=== PATIENT | female | born 1955 | race Caucasian/White ===

== ENCOUNTER 2020-08-10 17:18 | Inpatient (IN) | payer OTHER ==
[2020-08-10] MEDS ORDERED: LACTATED RINGERS SOLUTION 1000 ML INFUS.BAG IV ONE (18:17)
[2020-08-10] MEDS ORDERED: ACETAMINOPHEN 1000 MG/100 ML VIAL (NON FORMULARY) IVPB ONE (18:32)
[2020-08-10 18:33] LABS: BASO % 0.4 % (0-2.0); EOS % 0.1 % (0-4.5); HEMATOCRIT 39.4 % (32.4-45.2); HEMOGLOBIN 12.9 GM/dL (10.7-15.3); LYMPH % 6.1 % (8-40); MCH 28.1 pg (25.7-33.7); MCHC 32.6 g/dl (32.0-36.0); MEAN CELL VOLUME 86.1 fl (80-96); MEAN PLT VOLUME 6.6 fl (7.5-11.1); MONO % 4.1 % (3.8-10.2); NEUT % 89.3 % (42.8-82.8); PLATELET COUNT 343 K/MM3 (134-434); RBC 4.58 M/mm3 (3.60-5.2); WHITE BLOOD COUNT 15.3 K/mm3 (4.0-10.0)
[2020-08-10 18:39] LABS: INR 0.98 (0.83-1.09); PROTHROMBIN TIME (PATIENT) 11.9 SEC (9.7-13.0)
[2020-08-10 18:41] LABS: ACTIVATED PTT 29.8 SECONDS (25.2-36.5)
[2020-08-10 18:53] LABS: CHLORIDE 103 mmol/L (98-107); POTASSIUM 4.4 mmol/L (3.5-5.1); SODIUM 135 mmol/L (136-145)
[2020-08-10 18:55] LABS: ALBUMIN 4.7 g/dl (3.4-5.0)
[2020-08-10 18:56] LABS: ANION GAP 10 MMOL/L (8-16); BLOOD UREA NITROGEN 13.6 mg/dL (7-18); CO2 21 mmol/L (21-32); GLUCOSE,RANDOM 208 mg/dL (74-106); MAGNESIUM 2.7 mg/dL (1.8-2.4)
[2020-08-10 18:59] LABS: CREATININE 1.1 mg/dL (0.55-1.3); SGOT/AST 28 U/L (15-37); SGPT/ALT 29 U/L (13-61)
[2020-08-10 19:00] LABS: BILIRUBIN,TOTAL 0.2 mg/dL (0.2-1); TOT PROT 7.9 g/dl (6.4-8.2)
[2020-08-10 19:02] LABS: ALK PHOS 102 U/L (45-117)
[2020-08-10 19:33] VITALS: BMI 23.4
[2020-08-10] MEDS ORDERED: ACETAMINOPHEN 325 MG TABLET (FP) PO PRN (21:11)
[2020-08-10] MEDS ORDERED: SODIUM CHLORIDE 1,000 ML IV SCH (21:30)
[2020-08-10] MEDS: INSULIN SLIDING SCALE (NOVOLOG) 1 VIAL SQ SCH (23:06)
[2020-08-10 23:35] LABS: PH,URINE 5.5 (5.0-8.0); URINE APPEARANCE CLEAR; URINE BILIRUBIN NEGATIVE (NEGATIVE); URINE COLOR YELLOW; URINE GLUCOSE (UA) TRACE (NEGATIVE); URINE KETONE NEGATIVE (NEGATIVE); URINE LEUK ESTERASE NEGATIVE (NEGATIVE); URINE NITRITE NEGATIVE (NEGATIVE); URINE PROTEIN TRACE (NEGATIVE); URINE UROBILINOGEN 0.2 mg/dL (0.2-1.0)
[2020-08-11] MEDS: INSULIN SLIDING SCALE (NOVOLOG) 1 VIAL SQ SCH ×4 (06:56→21:19)
[2020-08-11 07:31] LABS: BASO % 0.6 % (0-2.0); EOS % 0.3 % (0-4.5); HEMATOCRIT 33.4 % (32.4-45.2); HEMOGLOBIN 11.1 GM/dL (10.7-15.3); LYMPH % 11.8 % (8-40); MCH 27.9 pg (25.7-33.7); MCHC 33.2 g/dl (32.0-36.0); MEAN CELL VOLUME 84.2 fl (80-96); MEAN PLT VOLUME 6.4 fl (7.5-11.1); MONO % 8.5 % (3.8-10.2); NEUT % 78.8 % (42.8-82.8); PLATELET COUNT 304 K/MM3 (134-434); RBC 3.97 M/mm3 (3.60-5.2); RDW 14.6 % (11.6-15.6); WHITE BLOOD COUNT 8.3 K/mm3 (4.0-10.0)
[2020-08-11 07:34] LABS: INR 1.05 (0.83-1.09); PROTHROMBIN TIME (PATIENT) 12.7 SEC (9.7-13.0)
[2020-08-11 07:36] LABS: ACTIVATED PTT 30.5 SECONDS (25.2-36.5)
[2020-08-11 07:37] LABS: POTASSIUM 4.6 mmol/L (3.5-5.1)
[2020-08-11 07:49] LABS: ALBUMIN 3.6 g/dl (3.4-5.0); BLOOD UREA NITROGEN 12.8 mg/dL (7-18)
[2020-08-11 07:51] LABS: CREATININE 0.7 mg/dL (0.55-1.3); PHOSPHOROUS 2.8 mg/dL (2.5-4.9)
[2020-08-11 07:52] LABS: BILIRUBIN,TOTAL 0.4 mg/dL (0.2-1); MAGNESIUM 2.5 mg/dL (1.8-2.4); TOT PROT 6.8 g/dl (6.4-8.2)
[2020-08-11] MEDS ORDERED: ONDANSETRON 4 MG/2 ML VIAL IVPUSH PRN (08:20)
[2020-08-11] MEDS ORDERED: PROPOFOL 20 ML ONE (09:28)
[2020-08-11] MEDS ORDERED: MIDAZOLAM HCL 2 MG/2 ML SINGLE DOSE VIAL ONE (09:29)
[2020-08-11] MEDS ORDERED: ACETAMINOPHEN 325 MG TABLET (FP) ONE (09:36)
[2020-08-11] MEDS ORDERED: ENOXAPARIN NA (PORCINE) 40 MG/0.4 ML DISP.SYRIN SQ ONE ×2 (09:40→11:12)
[2020-08-11] MEDS ORDERED: INSULIN (LEVEMIR) 100 UNITS/ML UNITS SQ ONE (09:41)
[2020-08-11] MEDS ORDERED: oxyCODONE HCL 5 MG TABLET PO PRN (09:42)
[2020-08-11] MEDS ORDERED: ACETAMINOPHEN 1000 MG/100 ML VIAL (NON FORMULARY) IVPB PRN (09:43)
[2020-08-11] MEDS ORDERED: MORPHINE SULFATE 2 MG/ML VIAL ONE (09:54)
[2020-08-11] MEDS: MORPHINE SULFATE 2 MG/ML VIAL IVPUSH PRN (10:02)
[2020-08-11] MEDS: LACTATED RINGERS SOLUTION 1,000 ML IV SCH (11:18)
[2020-08-12] MEDS: LACTATED RINGERS SOLUTION 1,000 ML IV SCH ×3 (02:20→23:55)
[2020-08-12] MEDS: INSULIN SLIDING SCALE (NOVOLOG) 1 VIAL SQ SCH ×3 (06:33→17:21)
[2020-08-12] MEDS: MORPHINE SULFATE 2 MG/ML VIAL IVPUSH PRN (08:08)
[2020-08-12] MEDS ORDERED: PERPHENAZINE 8 MG TABLET PO SCH (11:45)
[2020-08-12] MEDS ORDERED: MIDAZOLAM HCL 2 MG/2 ML SINGLE DOSE VIAL ONE ×2 (21:41)
[2020-08-12] MEDS ORDERED: GABAPENTIN 300 MG CAPSULE PO SCH (22:00)
[2020-08-12] MEDS ORDERED: TRIHEXYPHENIDYL HCL 5 MG TABLET PO SCH (22:00)
[2020-08-12] MEDS ORDERED: ceFAZolin SODIUM 1 GM VIAL ONE (22:06)
[2020-08-12] MEDS ORDERED: ceFAZolin SODIUM 1 GM VIAL IVPB ONE (22:10)
[2020-08-12] MEDS ORDERED: MORPHINE SULFATE 2 MG/ML VIAL IVPUSH PRN (23:26)
[2020-08-13] MEDS: INSULIN SLIDING SCALE (NOVOLOG) 1 VIAL SQ SCH ×5 (03:17→22:22)
[2020-08-13] MEDS: CEFAZOLIN 1 GM in DEXTROSE 5%-WATER - 1 GM/50 ML IVPB IVPB SCH ×3 (06:50→22:17)
[2020-08-13] MEDS ORDERED: DEXTROSE 5%-WATER - 50 ML IVPB ONE ×3 (06:53→21:56)
[2020-08-13] MEDS ORDERED: ceFAZolin SODIUM 1 GM VIAL ONE ×3 (06:53→21:56)
[2020-08-13] MEDS: oxyCODONE HCL 5 MG TABLET PO PRN ×2 (07:05→22:16)
[2020-08-13] MEDS: ACETAMINOPHEN 325 MG TABLET (FP) PO PRN (08:00)
[2020-08-13 08:31] LABS: BASO % 0.4 % (0-2.0); EOS % 0.5 % (0-4.5); HEMATOCRIT 30.7 % (32.4-45.2); HEMOGLOBIN 10.4 GM/dL (10.7-15.3); LYMPH % 8.1 % (8-40); MCH 28.7 pg (25.7-33.7); MCHC 34.1 g/dl (32.0-36.0); MEAN CELL VOLUME 84.2 fl (80-96); MEAN PLT VOLUME 6.7 fl (7.5-11.1); MONO % 7.2 % (3.8-10.2); NEUT % 83.8 % (42.8-82.8); PLATELET COUNT 280 K/MM3 (134-434); RBC 3.64 M/mm3 (3.60-5.2); WHITE BLOOD COUNT 8.3 K/mm3 (4.0-10.0)
[2020-08-13 08:51] LABS: POTASSIUM 3.8 mmol/L (3.5-5.1)
[2020-08-13 08:58] LABS: ALBUMIN 3.6 g/dl (3.4-5.0); CALCIUM 8.5 mg/dL (8.5-10.1)
[2020-08-13 09:01] LABS: BILIRUBIN,TOTAL 0.7 mg/dL (0.2-1); TOT PROT 6.7 g/dl (6.4-8.2)
[2020-08-13 09:02] LABS: CREATININE 0.5 mg/dL (0.55-1.3); PHOSPHOROUS 2.9 mg/dL (2.5-4.9)
[2020-08-13] MEDS ORDERED: PT OWN MED DRAWER 7, Y5N ONE (09:11)
[2020-08-13] MEDS: PARoxetine HCL 20 MG TABLET PO SCH (09:34)
[2020-08-13] MEDS: CALCIUM 500MG/VIT-D 200 UNITS COMBO TABLET (FP) PO SCH ×2 (09:34→22:17)
[2020-08-13] MEDS: GABAPENTIN 300 MG CAPSULE PO SCH ×2 (09:34→22:17)
[2020-08-13] MEDS: TRIHEXYPHENIDYL HCL 5 MG TABLET PO SCH ×2 (09:35→22:17)
[2020-08-13] MEDS: LISINOPRIL 10 MG TABLET PO SCH (09:35)
[2020-08-13] MEDS: ENOXAPARIN NA (PORCINE) 40 MG/0.4 ML DISP.SYRIN SQ SCH (09:35)
[2020-08-13] MEDS ORDERED: PARoxetine HCL 20 MG TABLET PO SCH (10:00)
[2020-08-13] MEDS ORDERED: PERPHENAZINE 8 MG TABLET PO SCH (10:00)
[2020-08-13] MEDS ORDERED: LISINOPRIL 5 MG TABLET PO SCH ×2 (10:00)
[2020-08-13] MEDS: PERPHENAZINE 4 MG TABLET PO SCH ×2 (10:57→22:16)
[2020-08-14] MEDS: LACTATED RINGERS SOLUTION 1,000 ML IV SCH (00:23)
[2020-08-14] MEDS: oxyCODONE HCL 5 MG TABLET PO PRN ×3 (06:22→21:43)
[2020-08-14] MEDS: INSULIN SLIDING SCALE (NOVOLOG) 1 VIAL SQ SCH ×4 (06:22→21:55)
[2020-08-14 08:26] LABS: BASO % 0.8 % (0-2.0); EOS % 3.2 % (0-4.5); HEMATOCRIT 27.6 % (32.4-45.2); HEMOGLOBIN 9.4 GM/dL (10.7-15.3); LYMPH % 27.4 % (8-40); MCH 28.4 pg (25.7-33.7); MCHC 34.2 g/dl (32.0-36.0); MEAN CELL VOLUME 83.1 fl (80-96); MEAN PLT VOLUME 6.7 fl (7.5-11.1); MONO % 10.3 % (3.8-10.2); NEUT % 58.3 % (42.8-82.8); PLATELET COUNT 286 K/MM3 (134-434); RBC 3.33 M/mm3 (3.60-5.2); RDW 13.8 % (11.6-15.6)
[2020-08-14 08:44] LABS: POTASSIUM 3.9 mmol/L (3.5-5.1)
[2020-08-14 08:53] LABS: ALBUMIN 2.9 g/dl (3.4-5.0); BLOOD UREA NITROGEN 6.6 mg/dL (7-18); CALCIUM 8.4 mg/dL (8.5-10.1)
[2020-08-14] MEDS ORDERED: PT OWN MED DRAWER 7, Y5N ONE (08:53)
[2020-08-14 08:54] LABS: MAGNESIUM 1.9 mg/dL (1.8-2.4)
[2020-08-14 08:56] LABS: CREATININE 0.4 mg/dL (0.55-1.3)
[2020-08-14 08:57] LABS: BILIRUBIN,TOTAL 0.6 mg/dL (0.2-1); PHOSPHOROUS 3.1 mg/dL (2.5-4.9)
[2020-08-14 08:58] LABS: TOT PROT 6.2 g/dl (6.4-8.2)
[2020-08-14] MEDS: TRIHEXYPHENIDYL HCL 5 MG TABLET PO SCH ×2 (09:20→21:56)
[2020-08-14] MEDS: ENOXAPARIN NA (PORCINE) 40 MG/0.4 ML DISP.SYRIN SQ SCH (09:21)
[2020-08-14] MEDS: GABAPENTIN 300 MG CAPSULE PO SCH ×2 (09:22→21:42)
[2020-08-14] MEDS: PARoxetine HCL 20 MG TABLET PO SCH (09:23)
[2020-08-14] MEDS: CALCIUM 500MG/VIT-D 200 UNITS COMBO TABLET (FP) PO SCH ×2 (09:23→21:42)
[2020-08-14] MEDS: LISINOPRIL 10 MG TABLET PO SCH (09:24)
[2020-08-14] MEDS: PERPHENAZINE 4 MG TABLET PO SCH ×2 (09:24→21:42)
[2020-08-14] MEDS: ACETAMINOPHEN 325 MG TABLET (FP) PO PRN (11:32)
[2020-08-15] MEDS: INSULIN SLIDING SCALE (NOVOLOG) 1 VIAL SQ SCH ×2 (06:27→11:44)
[2020-08-15] MEDS ORDERED: PT OWN MED DRAWER 7, Y5N ONE (09:11)
[2020-08-15] MEDS: GABAPENTIN 300 MG CAPSULE PO SCH (09:26)
[2020-08-15] MEDS: PARoxetine HCL 20 MG TABLET PO SCH (09:26)
[2020-08-15] MEDS: TRIHEXYPHENIDYL HCL 5 MG TABLET PO SCH (09:26)
[2020-08-15] MEDS: CALCIUM 500MG/VIT-D 200 UNITS COMBO TABLET (FP) PO SCH (09:26)
[2020-08-15] MEDS: ENOXAPARIN NA (PORCINE) 40 MG/0.4 ML DISP.SYRIN SQ SCH (09:26)
[2020-08-15] MEDS: LISINOPRIL 10 MG TABLET PO SCH (09:26)
[2020-08-15] MEDS: PERPHENAZINE 4 MG TABLET PO SCH (09:27)
[2020-08-15 10:21] VITALS: BP 105/69; PULSE 115; TEMP 97.9
[2020-08-15] MEDS ORDERED: INSULIN (NOVOLOG) ASPART 100 UNITS/ML 10ML VIAL ONE (11:31)
[2020-08-15] MEDS ORDERED: TAMSULOSIN HCL 0.4 MG CAP PO ONE (13:47)
== END 2020-08-15 14:19 | DRG 482 ==
LOC: JER 17:18 → JERBED 20:46 → J4W 08-11 20:46
PROVIDERS: ADMIT Hospitalist; ATTEND Internal Medicine
PROC: 0QS706Z Reposition Left Upper Femur with Intramedullary Internal Fixation Device, Open Approach (ICD-10-PCS; principal; 2020-08-12 18:00)
DX: S72.142A Displaced intertrochanteric fracture of left femur, initial encounter for closed fracture (principal); R55 Syncope and collapse; I95.9 Hypotension, unspecified; E86.0 Dehydration; R33.9 Retention of urine, unspecified; R19.7 Diarrhea, unspecified; E11.65 Type 2 diabetes mellitus with hyperglycemia; F32.9 Major depressive disorder, single episode, unspecified; I10 Essential (primary) hypertension; W19.XXXA Unspecified fall, initial encounter; Y93.9 Activity, unspecified; Y92.89 Other specified places as the place of occurrence of the external cause; Y99.9 Unspecified external cause status
CPT/HCPCS: 36415; 70450-TC; 71045-TC-FY; 72125-TC; 73523-TC-FY; 73552-TC-LT-FY; 74174-TC; 80053; 81003; 82962; 83036; 83735; 84100; 84443; 84484; 85025; 85610; 85730; 86850; 86900; 86901; 87045; 87046; 87086; 87205; 87324; 87449; 93005; 93010; 93306-TC; 94010; 94760; 97116-GP; 97161-GP; 99285-25; C9803; J0131; Q9967; U0003

== ENCOUNTER 2021-04-25 11:41 | Inpatient (IN) | payer OTHER ==
[2021-04-25 13:10] LABS: EPI CELLS 1 /uL (0-25.1); HYALINE CASTS 0 /uL (0-3.1); PH,URINE 5.5 (5.0-8.0); URINE APPEARANCE CLOUDY; URINE BACTERIA 6254 /uL (0-1359); URINE BILIRUBIN NEGATIVE (NEGATIVE); URINE COLOR YELLOW; URINE GLUCOSE (UA) TRACE (NEGATIVE); URINE KETONE NEGATIVE (NEGATIVE); URINE LEUK ESTERASE 3+ (NEGATIVE); URINE NITRITE POSITIVE (NEGATIVE); URINE PROTEIN TRACE (NEGATIVE); URINE RBC 13 /uL (0-23.9); URINE UROBILINOGEN 0.2 mg/dL (0.2-1.0); URINE WBC 973 /uL (0-25.8)
[2021-04-25] MEDS ORDERED: PIPERACILLIN/TAZOB 4.5 GM 4.5 GM in DEXTROSE 5%-WATER 100 ML IVPB ONE (13:12)
[2021-04-25] MEDS ORDERED: PIPERACILLIN/TAZOB 4.5 GM 4.5 GM/100 ML BAG IVPB ONE (13:17)
[2021-04-25] MEDS: SODIUM CHLORIDE 1,000 ML IV SCH (13:24)
[2021-04-25 13:34] LABS: BASO % 0.3 % (0-2.0); EOS % 1.9 % (0-4.5); HEMATOCRIT 38.6 % (32.4-45.2); HEMOGLOBIN 12.6 GM/dL (10.7-15.3); LYMPH % 9.7 % (8-40); MCH 27.3 pg (25.7-33.7); MCHC 32.7 g/dl (32.0-36.0); MEAN CELL VOLUME 83.5 fl (80-96); MEAN PLT VOLUME 6.7 fl (7.5-11.1); MONO % 3.6 % (3.8-10.2); NEUT % 84.5 % (42.8-82.8); PLATELET COUNT 411 10^3/uL (134-434); RBC 4.63 M/mm3 (3.60-5.2); WHITE BLOOD COUNT 12.8 K/mm3 (4.0-10.0)
[2021-04-25 13:39] LABS: INR 0.85 (0.83-1.09); PROTHROMBIN TIME (PATIENT) 10.5 SEC (9.7-13.0)
[2021-04-25 13:42] LABS: ACTIVATED PTT 37.1 SECONDS (25.2-36.5)
[2021-04-25 13:46] LABS: CHLORIDE 101 mmol/L (98-107); SODIUM 136 mmol/L (136-145)
[2021-04-25 13:50] LABS: CHOLESTEROL 193 mg/dL (50-200)
[2021-04-25 13:51] LABS: CALCIUM 9.8 mg/dL (8.5-10.1); TRIGLYCERIDES 100 mg/dL (0-150)
[2021-04-25 13:52] LABS: ALBUMIN 4.3 g/dl (3.4-5.0); ANION GAP 13 MMOL/L (8-16); BLOOD UREA NITROGEN 49.4 mg/dL (7-18); CO2 22 mmol/L (21-32); GLUCOSE,RANDOM 299 mg/dL (74-106); LDL CHOLESTEROL (ONLY SJRH) 110 mg/dL (5-100)
[2021-04-25 13:53] LABS: HDL CHOLESTEROL 53 mg/dL (40-60)
[2021-04-25 13:54] LABS: SGPT/ALT 28 U/L (13-61)
[2021-04-25 13:55] LABS: CREATININE 2.3 mg/dL (0.55-1.3); SGOT/AST 16 U/L (15-37)
[2021-04-25 13:56] LABS: BILIRUBIN,TOTAL 0.4 mg/dL (0.2-1); TOT PROT 8.8 g/dl (6.4-8.2)
[2021-04-25 13:57] LABS: ALK PHOS 158 U/L (45-117)
[2021-04-25] MEDS ORDERED: LACTATED RINGERS SOLUTION 1000 ML INFUS.BAG IV ONE (14:37)
[2021-04-25 23:20] VITALS: BMI 19.9
[2021-04-26] MEDS: SODIUM CHLORIDE 1,000 ML IV SCH (00:02)
[2021-04-26] MEDS ORDERED: INSULIN SLIDING SCALE (NOVOLOG) 1 VIAL SQ SCH (11:00)
[2021-04-26] MEDS: INSULIN SLIDING SCALE (NOVOLOG) 1 VIAL SQ SCH ×2 (11:06→16:55)
[2021-04-26] MEDS: LISINOPRIL 10 MG TABLET PO SCH (12:55)
[2021-04-26] MEDS: LORazepam 1 MG TABLET PO PRN (14:45)
[2021-04-26] MEDS ORDERED: CEFTRIAXONE 1 GM in DEXTROSE 5%-WATER - 50 ML IVPB SCH (17:15)
[2021-04-26] MEDS ORDERED: cefTRIAXone SODIUM 1 GM VIAL ONE (17:53)
[2021-04-26] MEDS ORDERED: DEXTROSE 5%-WATER - 50 ML IVPB ONE (17:54)
[2021-04-26] MEDS ORDERED: INSULIN (LEVEMIR) 100 UNITS/ML UNITS SQ SCH (22:00)
[2021-04-27] MEDS ORDERED: DEXTROSE 50%-WATER 25 GM/50 ML DISP.SYRIN ONE (06:09)
[2021-04-27] MEDS ORDERED: PIPERACILLIN/TAZOB 4.5 GM 4.5 GM in DEXTROSE 5%-WATER 100 ML IVPB ONE (06:17)
[2021-04-27] MEDS ORDERED: VANCOMYCIN 1 GM in D5W (PRE-DOCKED) 1,000 MG/250 ML IVPB ONE (06:18)
[2021-04-27] MEDS ORDERED: DEXTROSE 50%-WATER - 25 GM/50 ML VIAL IVPUSH ONE (06:19)
[2021-04-27 06:29] LABS: ARTERIAL BLD GAS O2 SATURATION 99.3 % (95-98); ARTERIAL BLOOD GAS BASE EXCESS -1.8 mmol/L (-2-2); ARTERIAL BLOOD GAS PO2 197.8 mmHg (80-100); ARTERIAL BLOOD GAS pH 7.393 (7.350-7.450)
[2021-04-27 06:30] LABS: ALLENS TEST POSITIVE
[2021-04-27] MEDS ORDERED: VANCOMYCIN 1 GRAM (PRE-DOCKED) 1,000 MG/250 ML BAG IVPB ONE (06:30)
[2021-04-27] MEDS ORDERED: PIPERACILLIN/TAZOBACTAM 4.5 GM VIAL IVPB ONE (06:48)
[2021-04-27] MEDS ORDERED: DEXTROSE 5%-WATER 100 ML IVPB ONE (06:48)
[2021-04-27 07:49] LABS: BASO % 0.8 % (0-2.0); EOS % 3.3 % (0-4.5); HEMATOCRIT 33.9 % (32.4-45.2); HEMOGLOBIN 11.5 GM/dL (10.7-15.3); LYMPH % 17.4 % (8-40); MCH 28.1 pg (25.7-33.7); MCHC 33.9 g/dl (32.0-36.0); MEAN CELL VOLUME 83.1 fl (80-96); MEAN PLT VOLUME 6.8 fl (7.5-11.1); MONO % 7.4 % (3.8-10.2); NEUT % 71.1 % (42.8-82.8); PLATELET COUNT 353 10^3/uL (134-434); RBC 4.08 M/mm3 (3.60-5.2); RDW 15.7 % (11.6-15.6); WHITE BLOOD COUNT 7.5 K/mm3 (4.0-10.0)
[2021-04-27] MEDS: INSULIN SLIDING SCALE (NOVOLOG) 1 VIAL SQ SCH ×3 (07:53→17:19)
[2021-04-27 08:07] LABS: CHLORIDE 106 mmol/L (98-107); SODIUM 138 mmol/L (136-145)
[2021-04-27 08:09] LABS: ALBUMIN 3.7 g/dl (3.4-5.0); ANION GAP 9 MMOL/L (8-16); CALCIUM 8.9 mg/dL (8.5-10.1); CO2 24 mmol/L (21-32)
[2021-04-27 08:10] LABS: BLOOD UREA NITROGEN 38.5 mg/dL (7-18); BLOOD UREA NITROGEN 38.6 mg/dL (7-18); CALCIUM 9.1 mg/dL (8.5-10.1); GLUCOSE,RANDOM 218 mg/dL (74-106)
[2021-04-27 08:12] LABS: SGPT/ALT 20 U/L (13-61)
[2021-04-27 08:13] LABS: CREATININE 2.1 mg/dL (0.55-1.3); SGOT/AST 12 U/L (15-37)
[2021-04-27 08:14] LABS: BILIRUBIN,TOTAL 0.3 mg/dL (0.2-1); CREATININE 2.1 mg/dL (0.55-1.3); TOT PROT 7.4 g/dl (6.4-8.2)
[2021-04-27 08:20] LABS: ALK PHOS 125 U/L (45-117)
[2021-04-27] MEDS ORDERED: levETIRAcetam 500 MG/5 ML INJECTION VIAL IVPB SCH ×2 (08:30→22:00)
[2021-04-27] MEDS ORDERED: levETIRAcetam 500 MG/5 ML INJECTION VIAL IVPB ONE (08:30)
[2021-04-27] MEDS ORDERED: LORazepam 2 MG/ML SDV VIAL IVPUSH ONE (08:30)
[2021-04-27] MEDS ORDERED: INSULIN (LEVEMIR) 100 UNITS/ML UNITS SQ SCH (10:20)
[2021-04-27] MEDS: LISINOPRIL 10 MG TABLET PO SCH (11:00)
[2021-04-27] MEDS: LORazepam 1 MG TABLET PO PRN (11:01)
[2021-04-27] MEDS ORDERED: diphenhydrAMINE HCL 25 MG CAPSULE (FP) PO ONE (13:00)
[2021-04-27] MEDS ORDERED: cefTRIAXone SODIUM 1 GM VIAL ONE (13:55)
[2021-04-27] MEDS ORDERED: DEXTROSE 5%-WATER - 50 ML IVPB ONE (13:56)
[2021-04-27] MEDS: CEFTRIAXONE 1 GM in DEXTROSE 5%-WATER - 50 ML IVPB SCH (14:00)
[2021-04-27] MEDS: levETIRAcetam 500 MG TABLET (FP) PO SCH (22:43)
[2021-04-27] MEDS ORDERED: INSULIN (LEVEMIR) 100 UNITS/ML UNITS SQ ONE (23:30)
[2021-04-27] MEDS: INSULIN (LEVEMIR) 100 UNITS/ML UNITS SQ SCH (23:37)
[2021-04-28] MEDS ORDERED: PT OWN MED DRAWER 7, Y5N ONE (02:56)
[2021-04-28] MEDS ORDERED: INSULIN (LEVEMIR) 100 UNITS/ML UNITS SQ ONE (02:56)
[2021-04-28] MEDS: LEVOTHYROXINE NA 75 MCG TABLET (FP) PO SCH (06:28)
[2021-04-28] MEDS: INSULIN SLIDING SCALE (NOVOLOG) 1 VIAL SQ SCH ×3 (06:29→16:36)
[2021-04-28 07:56] LABS: BASO % 1.3 % (0-2.0); EOS % 4.2 % (0-4.5); HEMATOCRIT 32.4 % (32.4-45.2); HEMOGLOBIN 10.9 GM/dL (10.7-15.3); LYMPH % 16.6 % (8-40); MCH 27.6 pg (25.7-33.7); MCHC 33.6 g/dl (32.0-36.0); MEAN CELL VOLUME 82.1 fl (80-96); MEAN PLT VOLUME 6.9 fl (7.5-11.1); MONO % 8.6 % (3.8-10.2); NEUT % 69.3 % (42.8-82.8); PLATELET COUNT 311 10^3/uL (134-434); RBC 3.94 M/mm3 (3.60-5.2); RDW 15.7 % (11.6-15.6); WHITE BLOOD COUNT 8.4 K/mm3 (4.0-10.0)
[2021-04-28 08:14] LABS: BLOOD UREA NITROGEN 40.4 mg/dL (7-18)
[2021-04-28 08:18] LABS: CREATININE 2.5 mg/dL (0.55-1.3)
[2021-04-28 09:16] LABS: PLATELET ESTIMATE NORMAL
[2021-04-28] MEDS ORDERED: cefTRIAXone SODIUM 1 GM VIAL ONE (09:33)
[2021-04-28] MEDS ORDERED: DEXTROSE 5%-WATER - 50 ML IVPB ONE (09:34)
[2021-04-28] MEDS: levETIRAcetam 500 MG TABLET (FP) PO SCH ×2 (09:48→21:57)
[2021-04-28] MEDS: LISINOPRIL 10 MG TABLET PO SCH (09:48)
[2021-04-28] MEDS: CEFTRIAXONE 1 GM in DEXTROSE 5%-WATER - 50 ML IVPB SCH (09:49)
[2021-04-28] MEDS ORDERED: SODIUM CHLORIDE 0.45% 1,000 ML IV SCH (15:00)
[2021-04-28] MEDS: INSULIN (LEVEMIR) 100 UNITS/ML UNITS SQ SCH (21:57)
[2021-04-29] MEDS: LORazepam 1 MG TABLET PO PRN ×3 (00:52→21:29)
[2021-04-29] MEDS: INSULIN SLIDING SCALE (NOVOLOG) 1 VIAL SQ SCH ×3 (06:26→16:43)
[2021-04-29] MEDS: LEVOTHYROXINE NA 75 MCG TABLET (FP) PO SCH (06:39)
[2021-04-29] MEDS ORDERED: cefTRIAXone SODIUM 1 GM VIAL ONE (08:44)
[2021-04-29] MEDS ORDERED: DEXTROSE 5%-WATER - 50 ML IVPB ONE (08:44)
[2021-04-29] MEDS: levETIRAcetam 500 MG TABLET (FP) PO SCH ×2 (09:03→21:28)
[2021-04-29] MEDS: CEFTRIAXONE 1 GM in DEXTROSE 5%-WATER - 50 ML IVPB SCH (09:03)
[2021-04-29 11:50] LABS: CALCIUM 9.4 mg/dL (8.5-10.1)
[2021-04-29 11:51] LABS: BLOOD UREA NITROGEN 34.1 mg/dL (7-18)
[2021-04-29 11:54] LABS: CREATININE 1.9 mg/dL (0.55-1.3)
[2021-04-29] MEDS ORDERED: LORazepam 2 MG/ML SDV VIAL IM ONE (13:15)
[2021-04-29] MEDS ORDERED: SODIUM CHLORIDE 0.45% 1,000 ML IV SCH (15:15)
[2021-04-29 18:10] LABS: EPI CELLS 2 /uL (0-25.1); HYALINE CASTS 0 /uL (0-3.1); PH,URINE 5.5 (5.0-8.0); URINE APPEARANCE CLOUDY; URINE BACTERIA 71 /uL (0-1359); URINE BILIRUBIN NEGATIVE (NEGATIVE); URINE COLOR YELLOW; URINE GLUCOSE (UA) NEGATIVE (NEGATIVE); URINE KETONE NEGATIVE (NEGATIVE); URINE LEUK ESTERASE 3+ (NEGATIVE); URINE NITRITE NEGATIVE (NEGATIVE); URINE PROTEIN TRACE (NEGATIVE); URINE RBC 12 /uL (0-23.9); URINE UROBILINOGEN 0.2 mg/dL (0.2-1.0); URINE WBC 1145 /uL (0-25.8)
[2021-04-29] MEDS: INSULIN (LEVEMIR) 100 UNITS/ML UNITS SQ SCH (21:29)
[2021-04-30] MEDS: LEVOTHYROXINE NA 75 MCG TABLET (FP) PO SCH (06:01)
[2021-04-30] MEDS: INSULIN SLIDING SCALE (NOVOLOG) 1 VIAL SQ SCH ×3 (06:01→17:12)
[2021-04-30 08:33] LABS: ALBUMIN 3.5 g/dl (3.4-5.0); BLOOD UREA NITROGEN 37.4 mg/dL (7-18)
[2021-04-30 08:37] LABS: BILIRUBIN,TOTAL 0.2 mg/dL (0.2-1); TOT PROT 7.1 g/dl (6.4-8.2)
[2021-04-30] MEDS: levETIRAcetam 500 MG TABLET (FP) PO SCH ×2 (10:33→20:59)
[2021-04-30] MEDS ORDERED: LORazepam 1 MG TABLET PO ONE (19:17)
[2021-04-30] MEDS ORDERED: INSULIN (NOVOLOG) ASPART 100 UNITS/ML 10ML VIAL ONE (20:20)
[2021-04-30] MEDS: INSULIN (LEVEMIR) 100 UNITS/ML UNITS SQ SCH (20:59)
[2021-04-30] MEDS ORDERED: OLANZapine 5 MG TABLET PO SCH (22:00)
[2021-04-30 23:33] VITALS: BP 161/83; PULSE 92; TEMP 97.4
[2021-05-01] MEDS: LEVOTHYROXINE NA 75 MCG TABLET (FP) PO SCH (06:13)
[2021-05-01] MEDS: INSULIN SLIDING SCALE (NOVOLOG) 1 VIAL SQ SCH (06:13)
== END 2021-05-01 07:35 | DRG 689 ==
LOC: JER 11:41 → JERBED 14:13 → J7W 22:01
PROVIDERS: ADMIT Family Medicine; ATTEND Family Medicine
DX: N39.0 Urinary tract infection, site not specified (principal); G92 Toxic encephalopathy; N17.9 Acute kidney failure, unspecified; F03.91 Unspecified dementia, unspecified severity, with behavioral disturbance; R41.82 Altered mental status, unspecified; I10 Essential (primary) hypertension; R56.9 Unspecified convulsions; E11.649 Type 2 diabetes mellitus with hypoglycemia without coma; K21.9 Gastro-esophageal reflux disease without esophagitis
CPT/HCPCS: 36415; 36600; 70450-TC; 71045-TC-FY; 76775-TC; 76856-TC; 80048; 80053; 80061; 81003; 82010; 82140; 82436; 82550; 82570; 82607; 82747; 82803; 82962; 83605; 84133; 84300; 84443; 84484; 85014; 85025; 85610; 85730; 86780; 86850; 86900; 86901; 87040; 87077; 87086; 87804; 93005; 93010; 97116-GP; 97161-GP; 99285-25; C9803; U0003; U0005

== ENCOUNTER 2021-11-07 11:58 | Inpatient (IN) | payer OTHER ==
[2021-11-07 12:25] VITALS: BMI 18.5
[2021-11-07 13:23] LABS: BASO % 0.4 % (0-2.0); EOS % 1.8 % (0-4.5); HEMATOCRIT 22.2 % (32.4-45.2); HEMOGLOBIN 7.8 GM/dL (10.7-15.3); LYMPH % 5.6 % (8-40); MCH 28.3 pg (25.7-33.7); MEAN CELL VOLUME 80.8 fl (80-96); MEAN PLT VOLUME 6.1 fl (7.5-11.1); MONO % 6.7 % (3.8-10.2); NEUT % 85.5 % (42.8-82.8); PLATELET COUNT 390 10^3/uL (134-434); RBC 2.74 M/mm3 (3.60-5.2); RDW 13.6 % (11.6-15.6); WHITE BLOOD COUNT 11.8 K/mm3 (4.0-10.0)
[2021-11-07 13:29] LABS: INR 1.03 (0.83-1.09); PROTHROMBIN TIME (PATIENT) 11.9 SEC (9.7-13.0)
[2021-11-07 13:31] LABS: ACTIVATED PTT 33.6 SECONDS (25.2-36.5)
[2021-11-07 13:32] LABS: PH,URINE 6.5 (5.0-8.0); URINE APPEARANCE CLOUDY; URINE BILIRUBIN NEGATIVE (NEGATIVE); URINE COLOR YELLOW; URINE GLUCOSE (UA) NEGATIVE (NEGATIVE); URINE KETONE NEGATIVE (NEGATIVE); URINE LEUK ESTERASE 3+ (NEGATIVE); URINE NITRITE POSITIVE (NEGATIVE); URINE PROTEIN TRACE (NEGATIVE); URINE UROBILINOGEN 0.2 mg/dL (0.2-1.0)
[2021-11-07 13:40] LABS: EPI CELLS 5.7 /uL (0-25.1); URINE BACTERIA 2459.1 /uL (0-1359); URINE RBC 22.9 /uL (0-23.9); URINE WBC 1611.9 /uL (0-25.8)
[2021-11-07 13:46] LABS: CALCIUM 8.7 mg/dL (8.5-10.1)
[2021-11-07 13:48] LABS: ALBUMIN 3.8 g/dl (3.4-5.0); MAGNESIUM 2.2 mg/dL (1.8-2.4)
[2021-11-07] MEDS ORDERED: SODIUM CHLORIDE 0.9% 500 ML INFUS.BAG IV ONE (13:48)
[2021-11-07 13:51] LABS: CREATININE 2.7 mg/dL (0.55-1.3); PHOSPHOROUS 4.8 mg/dL (2.5-4.9)
[2021-11-07] MEDS ORDERED: CEFTRIAXONE 1 GM in DEXTROSE 5%-WATER - 100 ML IVPB ONE (13:52)
[2021-11-07 13:53] LABS: BILIRUBIN,TOTAL 0.2 mg/dL (0.2-1); TOT PROT 7.1 g/dl (6.4-8.2)
[2021-11-07] MEDS ORDERED: CEFTRIAXONE 1 GM/50 ML BAG ONE (13:53)
[2021-11-07 14:18] LABS: BLOOD UREA NITROGEN 60.5 mg/dL (7-18)
[2021-11-07] MEDS: ACETAMINOPHEN 325 MG TABLET (FP) PO PRN (17:36)
[2021-11-07] MEDS ORDERED: SODIUM CHLORIDE 1,000 ML IV SCH (18:08)
[2021-11-07] MEDS: SODIUM CHLORIDE 1,000 ML IV SCH ×2 (18:10→18:49)
[2021-11-07] MEDS: SODIUM ZIRCONIUM CYCLOSILICATE (LOKELMA) 10 GM PACKET PO SCH (19:29)
[2021-11-07 19:53] LABS: MCH 27.9 pg (25.7-33.7); MCHC 34.6 g/dl (32.0-36.0); MEAN CELL VOLUME 80.7 fl (80-96); MEAN PLT VOLUME 6.2 fl (7.5-11.1); PLATELET COUNT 400 10^3/uL (134-434); RBC 2.48 M/mm3 (3.60-5.2); RDW 13.5 % (11.6-15.6); WHITE BLOOD COUNT 11.2 K/mm3 (4.0-10.0)
[2021-11-07 20:05] LABS: HEMOGLOBIN 6.9 GM/dL (10.7-15.3)
[2021-11-07 20:22] LABS: CALCIUM 8.2 mg/dL (8.5-10.1)
[2021-11-07 20:23] LABS: BLOOD UREA NITROGEN 58.2 mg/dL (7-18)
[2021-11-07 20:27] LABS: CREATININE 2.8 mg/dL (0.55-1.3)
[2021-11-07] MEDS: OLANZapine 5 MG TABLET PO SCH (22:42)
[2021-11-07] MEDS: HEPARIN NA (PORCINE) 5,000 UNITS/ML 1ML VIAL SQ SCH (22:42)
[2021-11-07] MEDS: levETIRAcetam 500 MG TABLET (FP) PO SCH (22:42)
[2021-11-08] MEDS: ACETAMINOPHEN 325 MG TABLET (FP) PO PRN ×2 (02:29→16:43)
[2021-11-08] MEDS: LEVOTHYROXINE NA 75 MCG TABLET (FP) PO SCH (06:32)
[2021-11-08 08:52] LABS: BASO % 0.5 % (0-2.0); EOS % 1.7 % (0-4.5); HEMATOCRIT 30.2 % (32.4-45.2); HEMOGLOBIN 10.1 GM/dL (10.7-15.3); LYMPH % 7.2 % (8-40); MCH 27.4 pg (25.7-33.7); MCHC 33.6 g/dl (32.0-36.0); MEAN CELL VOLUME 81.6 fl (80-96); MEAN PLT VOLUME 6.1 fl (7.5-11.1); MONO % 6.7 % (3.8-10.2); NEUT % 83.9 % (42.8-82.8); PLATELET COUNT 453 10^3/uL (134-434); RDW 14.6 % (11.6-15.6); WHITE BLOOD COUNT 9.9 K/mm3 (4.0-10.0)
[2021-11-08 09:19] LABS: BLOOD UREA NITROGEN 59.5 mg/dL (7-18)
[2021-11-08 09:20] LABS: ALBUMIN 3.9 g/dl (3.4-5.0); MAGNESIUM 2.4 mg/dL (1.8-2.4)
[2021-11-08 09:23] LABS: CREATININE 2.9 mg/dL (0.55-1.3)
[2021-11-08 09:24] LABS: BILIRUBIN,TOTAL 0.5 mg/dL (0.2-1); TOT PROT 7.5 g/dl (6.4-8.2)
[2021-11-08] MEDS ORDERED: cefTRIAXone SODIUM 1 GM VIAL ONE (09:38)
[2021-11-08] MEDS ORDERED: DEXTROSE 5%-WATER - 50 ML IVPB ONE (09:38)
[2021-11-08] MEDS: CEFTRIAXONE 1 GM in DEXTROSE 5%-WATER - 50 ML IVPB SCH (09:41)
[2021-11-08] MEDS: levETIRAcetam 500 MG TABLET (FP) PO SCH ×2 (09:41→21:28)
[2021-11-08] MEDS: HEPARIN NA (PORCINE) 5,000 UNITS/ML 1ML VIAL SQ SCH ×2 (09:41→21:27)
[2021-11-08] MEDS: OLANZapine 5 MG TABLET PO SCH ×2 (09:41→21:28)
[2021-11-08] MEDS ORDERED: FLU VACC QS2021-22(6MOS UP)/PF 60 MCG/0.5 ML SYRINGE IM ONE (10:00)
[2021-11-08] MEDS: SODIUM ZIRCONIUM CYCLOSILICATE (LOKELMA) 10 GM PACKET PO SCH (10:51)
[2021-11-08] MEDS ORDERED: SODIUM ZIRCONIUM CYCLOSILICATE (LOKELMA) 5 GM PACKET PO SCH (11:00)
[2021-11-08] MEDS ORDERED: SODIUM ZIRCONIUM CYCLOSILICATE (LOKELMA) 10 GM PACKET PO SCH (11:00)
[2021-11-08] MEDS ORDERED: POLYETHYLENE GLYCOL (HEALTHYLAX) 3350 17 GM PACKET PO ONE ×2 (12:30→14:00)
[2021-11-08] MEDS ORDERED: SODIUM CHLORIDE 1,000 ML IV SCH (12:30)
[2021-11-08] MEDS ORDERED: POLYETHYLENE GLYCOL 3350 119 GM BTL PO ONE (14:00)
[2021-11-08] MEDS: POLYETHYLENE GLYCOL (HEALTHYLAX) 3350 17 GM PACKET PO SCH (21:28)
[2021-11-09] MEDS: LEVOTHYROXINE NA 75 MCG TABLET (FP) PO SCH (06:30)
[2021-11-09] MEDS: HEPARIN NA (PORCINE) 5,000 UNITS/ML 1ML VIAL SQ SCH (10:13)
[2021-11-09] MEDS: POLYETHYLENE GLYCOL (HEALTHYLAX) 3350 17 GM PACKET PO SCH ×2 (10:13→22:01)
[2021-11-09] MEDS: CEFTRIAXONE 1 GM in DEXTROSE 5%-WATER - 50 ML IVPB SCH (10:13)
[2021-11-09] MEDS: levETIRAcetam 500 MG TABLET (FP) PO SCH (10:13)
[2021-11-09] MEDS: OLANZapine 5 MG TABLET PO SCH ×2 (10:13→22:01)
[2021-11-09] MEDS: ACETAMINOPHEN 325 MG TABLET (FP) PO PRN (10:36)
[2021-11-09] MEDS: OXcarbazepine 150 MG TABLET (UD) PO SCH (22:01)
[2021-11-10] MEDS: LEVOTHYROXINE NA 75 MCG TABLET (FP) PO SCH (06:17)
[2021-11-10 08:20] LABS: BASO % 0.9 % (0-2.0); EOS % 5.3 % (0-4.5); HEMATOCRIT 26.8 % (32.4-45.2); HEMOGLOBIN 9.3 GM/dL (10.7-15.3); LYMPH % 11.5 % (8-40); MCHC 34.9 g/dl (32.0-36.0); MEAN CELL VOLUME 80.2 fl (80-96); MONO % 12.9 % (3.8-10.2); NEUT % 69.4 % (42.8-82.8); PLATELET COUNT 451 10^3/uL (134-434); RBC 3.34 M/mm3 (3.60-5.2); RDW 14.6 % (11.6-15.6); WHITE BLOOD COUNT 7.9 K/mm3 (4.0-10.0)
[2021-11-10 08:27] LABS: MEAN PLT VOLUME 5.8 fl (7.5-11.1)
[2021-11-10 08:34] LABS: ALBUMIN 3.4 g/dl (3.4-5.0); CALCIUM 9.2 mg/dL (8.5-10.1)
[2021-11-10 08:35] LABS: BLOOD UREA NITROGEN 53.5 mg/dL (7-18)
[2021-11-10 08:39] LABS: CREATININE 2.9 mg/dL (0.55-1.3)
[2021-11-10 08:40] LABS: BILIRUBIN,TOTAL 0.2 mg/dL (0.2-1); TOT PROT 7.2 g/dl (6.4-8.2)
[2021-11-10] MEDS ORDERED: cefTRIAXone SODIUM 1 GM VIAL ONE (10:37)
[2021-11-10] MEDS ORDERED: DEXTROSE 5%-WATER - 50 ML IVPB ONE (10:38)
[2021-11-10] MEDS: POLYETHYLENE GLYCOL (HEALTHYLAX) 3350 17 GM PACKET PO SCH ×2 (10:42→22:13)
[2021-11-10] MEDS: CEFTRIAXONE 1 GM in DEXTROSE 5%-WATER - 50 ML IVPB SCH (10:42)
[2021-11-10] MEDS: SODIUM ZIRCONIUM CYCLOSILICATE (LOKELMA) 5 GM PACKET PO SCH (10:42)
[2021-11-10] MEDS: OXcarbazepine 150 MG TABLET (UD) PO SCH ×2 (10:43→22:13)
[2021-11-10] MEDS: OLANZapine 5 MG TABLET PO SCH ×2 (10:43→22:13)
[2021-11-10] MEDS: ACETAMINOPHEN 325 MG TABLET (FP) PO PRN (10:55)
[2021-11-11] MEDS: LEVOTHYROXINE NA 75 MCG TABLET (FP) PO SCH (06:43)
[2021-11-11 08:53] LABS: BASO % 1.2 % (0-2.0); EOS % 6.9 % (0-4.5); HEMATOCRIT 29.3 % (32.4-45.2); HEMOGLOBIN 9.9 GM/dL (10.7-15.3); LYMPH % 10.4 % (8-40); MCH 27.2 pg (25.7-33.7); MCHC 33.7 g/dl (32.0-36.0); MEAN CELL VOLUME 80.7 fl (80-96); MEAN PLT VOLUME 6.2 fl (7.5-11.1); MONO % 9.7 % (3.8-10.2); NEUT % 71.8 % (42.8-82.8); PLATELET COUNT 496 10^3/uL (134-434); RBC 3.64 M/mm3 (3.60-5.2); RDW 14.6 % (11.6-15.6); WHITE BLOOD COUNT 7.8 K/mm3 (4.0-10.0)
[2021-11-11 09:13] LABS: ALBUMIN 3.7 g/dl (3.4-5.0)
[2021-11-11 09:16] LABS: CREATININE 2.7 mg/dL (0.55-1.3)
[2021-11-11 09:18] LABS: BILIRUBIN,TOTAL 0.4 mg/dL (0.2-1); TOT PROT 7.5 g/dl (6.4-8.2)
[2021-11-11] MEDS: POLYETHYLENE GLYCOL (HEALTHYLAX) 3350 17 GM PACKET PO SCH ×2 (09:43→21:40)
[2021-11-11] MEDS: SODIUM ZIRCONIUM CYCLOSILICATE (LOKELMA) 5 GM PACKET PO SCH (09:43)
[2021-11-11] MEDS: OLANZapine 5 MG TABLET PO SCH ×2 (09:44→21:40)
[2021-11-11] MEDS: OXcarbazepine 150 MG TABLET (UD) PO SCH ×2 (09:44→21:40)
[2021-11-11] MEDS: ACETAMINOPHEN 325 MG TABLET (FP) PO PRN ×2 (09:46→21:41)
[2021-11-11] MEDS ORDERED: cefTRIAXone SODIUM 1 GM VIAL ONE (09:51)
[2021-11-11] MEDS ORDERED: DEXTROSE 5%-WATER - 50 ML IVPB ONE (09:52)
[2021-11-11] MEDS ORDERED: CEFTRIAXONE 1 GM in DEXTROSE 5%-WATER - 50 ML IVPB ONE (10:00)
[2021-11-11] MEDS ORDERED: SODIUM CHLORIDE 1,000 ML IV SCH (15:30)
[2021-11-12] MEDS: POLYETHYLENE GLYCOL (HEALTHYLAX) 3350 17 GM PACKET PO SCH ×3 (06:08→22:14)
[2021-11-12] MEDS: LEVOTHYROXINE NA 75 MCG TABLET (FP) PO SCH (06:08)
[2021-11-12] MEDS: OLANZapine 5 MG TABLET PO SCH ×2 (10:34→22:14)
[2021-11-12] MEDS: OXcarbazepine 150 MG TABLET (UD) PO SCH ×2 (10:34→22:14)
[2021-11-12] MEDS: SODIUM ZIRCONIUM CYCLOSILICATE (LOKELMA) 5 GM PACKET PO SCH (10:34)
[2021-11-12 10:54] LABS: ALBUMIN 3.7 g/dl (3.4-5.0); BLOOD UREA NITROGEN 47.6 mg/dL (7-18); CALCIUM 8.9 mg/dL (8.5-10.1)
[2021-11-12 10:57] LABS: CREATININE 2.6 mg/dL (0.55-1.3)
[2021-11-12 10:59] LABS: BILIRUBIN,TOTAL 0.4 mg/dL (0.2-1); TOT PROT 7.2 g/dl (6.4-8.2)
[2021-11-12] MEDS ORDERED: PEG 3350/NA SULF BICARB CL/KCL 4000 ML SOLN.RECON PO ONE (12:00)
[2021-11-12] MEDS: SODIUM CHLORIDE 1 GM TABLET PO SCH ×2 (13:32→22:14)
[2021-11-12] MEDS ORDERED: BISACODYL 5 MG TABLET.DR (FP) PO ONE ×2 (20:00→22:15)
[2021-11-13] MEDS: LEVOTHYROXINE NA 75 MCG TABLET (FP) PO SCH (06:06)
[2021-11-13] MEDS: POLYETHYLENE GLYCOL (HEALTHYLAX) 3350 17 GM PACKET PO SCH ×3 (06:06→21:45)
[2021-11-13 09:17] LABS: BASO % 1.1 % (0-2.0); HEMATOCRIT 28.4 % (32.4-45.2); HEMOGLOBIN 9.7 GM/dL (10.7-15.3); LYMPH % 11.1 % (8-40); MCH 27.4 pg (25.7-33.7); MCHC 34.1 g/dl (32.0-36.0); MEAN CELL VOLUME 80.4 fl (80-96); MEAN PLT VOLUME 6.2 fl (7.5-11.1); MONO % 10.6 % (3.8-10.2); NEUT % 70.2 % (42.8-82.8); PLATELET COUNT 454 10^3/uL (134-434); RBC 3.54 M/mm3 (3.60-5.2); RDW 14.2 % (11.6-15.6); WHITE BLOOD COUNT 6.2 K/mm3 (4.0-10.0)
[2021-11-13 09:35] LABS: CALCIUM 8.8 mg/dL (8.5-10.1)
[2021-11-13 09:36] LABS: BLOOD UREA NITROGEN 43.6 mg/dL (7-18)
[2021-11-13 09:39] LABS: CREATININE 2.6 mg/dL (0.55-1.3)
[2021-11-13] MEDS: OLANZapine 5 MG TABLET PO SCH ×2 (10:12→21:45)
[2021-11-13] MEDS: SODIUM CHLORIDE 1 GM TABLET PO SCH ×2 (10:13→21:45)
[2021-11-13] MEDS: SODIUM ZIRCONIUM CYCLOSILICATE (LOKELMA) 5 GM PACKET PO SCH (10:13)
[2021-11-13] MEDS: OXcarbazepine 150 MG TABLET (UD) PO SCH ×2 (10:13→21:45)
[2021-11-13] MEDS ORDERED: PEG 3350/NA SULF BICARB CL/KCL 4000 ML SOLN.RECON PO ONE (12:00)
[2021-11-13] MEDS ORDERED: BISACODYL 5 MG TABLET.DR (FP) PO ONE (20:00)
[2021-11-14] MEDS ORDERED: ACETAMINOPHEN 1000 MG/100 ML BAG IVPB ONE (02:35)
[2021-11-14] MEDS: POLYETHYLENE GLYCOL (HEALTHYLAX) 3350 17 GM PACKET PO SCH ×3 (06:32→21:14)
[2021-11-14] MEDS: LEVOTHYROXINE NA 75 MCG TABLET (FP) PO SCH (06:32)
[2021-11-14 09:50] LABS: BASO % 0.9 % (0-2.0); EOS % 4.3 % (0-4.5); HEMATOCRIT 27.9 % (32.4-45.2); HEMOGLOBIN 9.9 GM/dL (10.7-15.3); LYMPH % 10.9 % (8-40); MCH 28.1 pg (25.7-33.7); MCHC 35.5 g/dl (32.0-36.0); MEAN CELL VOLUME 79.2 fl (80-96); MEAN PLT VOLUME 5.9 fl (7.5-11.1); MONO % 7.4 % (3.8-10.2); NEUT % 76.5 % (42.8-82.8); PLATELET COUNT 425 10^3/uL (134-434); RBC 3.52 M/mm3 (3.60-5.2); RDW 13.8 % (11.6-15.6); WHITE BLOOD COUNT 6.9 K/mm3 (4.0-10.0)
[2021-11-14 09:57] LABS: INR 1.05 (0.83-1.09); PROTHROMBIN TIME (PATIENT) 12.1 SEC (9.7-13.0)
[2021-11-14 10:03] LABS: CALCIUM 8.9 mg/dL (8.5-10.1)
[2021-11-14 10:07] LABS: CREATININE 2.4 mg/dL (0.55-1.3)
[2021-11-14] MEDS: SODIUM CHLORIDE 1 GM TABLET PO SCH ×2 (10:18→21:14)
[2021-11-14] MEDS: SODIUM ZIRCONIUM CYCLOSILICATE (LOKELMA) 5 GM PACKET PO SCH (10:18)
[2021-11-14] MEDS: OLANZapine 5 MG TABLET PO SCH ×2 (10:18→21:14)
[2021-11-14] MEDS: OXcarbazepine 150 MG TABLET (UD) PO SCH ×2 (10:19→21:14)
[2021-11-14] MEDS: ACETAMINOPHEN 325 MG TABLET (FP) PO PRN ×2 (10:19→17:01)
[2021-11-14] MEDS: HEPARIN NA (PORCINE) 5,000 UNITS/ML 1ML VIAL SQ SCH (21:14)
[2021-11-15] MEDS: ACETAMINOPHEN 325 MG TABLET (FP) PO PRN ×2 (02:30→20:22)
[2021-11-15] MEDS: LEVOTHYROXINE NA 75 MCG TABLET (FP) PO SCH (06:25)
[2021-11-15] MEDS: POLYETHYLENE GLYCOL (HEALTHYLAX) 3350 17 GM PACKET PO SCH ×3 (06:25→21:44)
[2021-11-15] MEDS: HEPARIN NA (PORCINE) 5,000 UNITS/ML 1ML VIAL SQ SCH ×2 (09:23→21:44)
[2021-11-15] MEDS: OLANZapine 5 MG TABLET PO SCH ×2 (09:23→21:45)
[2021-11-15] MEDS: SODIUM CHLORIDE 1 GM TABLET PO SCH ×2 (10:20→21:44)
[2021-11-15] MEDS: SODIUM ZIRCONIUM CYCLOSILICATE (LOKELMA) 5 GM PACKET PO SCH (13:02)
[2021-11-15] MEDS: OXcarbazepine 150 MG TABLET (UD) PO SCH ×2 (13:06→21:44)
[2021-11-15] MEDS ORDERED: PEG 3350/NA SULF BICARB CL/KCL 4000 ML SOLN.RECON PO ONE (16:00)
[2021-11-16] MEDS: LEVOTHYROXINE NA 75 MCG TABLET (FP) PO SCH (06:06)
[2021-11-16] MEDS: POLYETHYLENE GLYCOL (HEALTHYLAX) 3350 17 GM PACKET PO SCH ×3 (06:06→21:39)
[2021-11-16] MEDS ORDERED: PEG 3350/NA SULF BICARB CL/KCL 4000 ML SOLN.RECON PO ONE ×2 (09:00→12:00)
[2021-11-16] MEDS: SODIUM ZIRCONIUM CYCLOSILICATE (LOKELMA) 5 GM PACKET PO SCH (09:13)
[2021-11-16] MEDS: OXcarbazepine 150 MG TABLET (UD) PO SCH ×2 (09:14→21:40)
[2021-11-16] MEDS: OLANZapine 5 MG TABLET PO SCH ×2 (09:14→21:41)
[2021-11-16] MEDS: SODIUM CHLORIDE 1 GM TABLET PO SCH ×2 (09:14→21:41)
[2021-11-16] MEDS: HEPARIN NA (PORCINE) 5,000 UNITS/ML 1ML VIAL SQ SCH (10:15)
[2021-11-16] MEDS: ACETAMINOPHEN 325 MG TABLET (FP) PO PRN ×2 (12:21→21:46)
[2021-11-16] MEDS ORDERED: BISACODYL 5 MG TABLET.DR (FP) PO ONE (20:00)
[2021-11-17] MEDS: POLYETHYLENE GLYCOL (HEALTHYLAX) 3350 17 GM PACKET PO SCH ×2 (06:16→13:31)
[2021-11-17] MEDS: LEVOTHYROXINE NA 75 MCG TABLET (FP) PO SCH (06:16)
[2021-11-17 07:01] LABS: BASO % 1.1 % (0-2.0); EOS % 4.2 % (0-4.5); HEMATOCRIT 30.6 % (32.4-45.2); HEMOGLOBIN 10.3 GM/dL (10.7-15.3); LYMPH % 13.9 % (8-40); MCH 27.2 pg (25.7-33.7); MCHC 33.7 g/dl (32.0-36.0); MEAN CELL VOLUME 80.6 fl (80-96); MONO % 8.9 % (3.8-10.2); NEUT % 71.9 % (42.8-82.8); PLATELET COUNT 456 10^3/uL (134-434); RBC 3.79 M/mm3 (3.60-5.2); RDW 14.4 % (11.6-15.6); WHITE BLOOD COUNT 6.9 K/mm3 (4.0-10.0)
[2021-11-17 07:12] LABS: INR 1.03 (0.83-1.09); PROTHROMBIN TIME (PATIENT) 11.8 SEC (9.7-13.0)
[2021-11-17 07:25] LABS: ALBUMIN 3.7 g/dl (3.4-5.0); CALCIUM 9.3 mg/dL (8.5-10.1)
[2021-11-17 07:26] LABS: BLOOD UREA NITROGEN 35.6 mg/dL (7-18)
[2021-11-17 07:28] LABS: CREATININE 2.3 mg/dL (0.55-1.3)
[2021-11-17 07:29] LABS: BILIRUBIN,TOTAL 0.3 mg/dL (0.2-1)
[2021-11-17] MEDS: SODIUM ZIRCONIUM CYCLOSILICATE (LOKELMA) 5 GM PACKET PO SCH (12:07)
[2021-11-17] MEDS: SODIUM CHLORIDE 1 GM TABLET PO SCH (12:07)
[2021-11-17] MEDS: OXcarbazepine 150 MG TABLET (UD) PO SCH (12:07)
[2021-11-17] MEDS: OLANZapine 5 MG TABLET PO SCH (12:07)
[2021-11-17] MEDS ORDERED: PANTOPRAZOLE 40 MG TABLET PO SCH (13:15)
[2021-11-17 14:57] VITALS: BP 155/77; PULSE 90; TEMP 98
== END 2021-11-17 16:37 | DRG 641 ==
LOC: JER 11:58 → JERBED 15:04 → J4S 17:09
PROVIDERS: ADMIT Family Medicine; ATTEND Family Medicine
PROC: 30233N1 Transfusion of Nonautologous Red Blood Cells into Peripheral Vein, Percutaneous Approach (ICD-10-PCS; 2021-11-08)
PROC: 0DB68ZX Excision of Stomach, Via Natural or Artificial Opening Endoscopic, Diagnostic (ICD-10-PCS; 2021-11-17)
PROC: 0DJD8ZZ Inspection of Lower Intestinal Tract, Via Natural or Artificial Opening Endoscopic (ICD-10-PCS; 2021-11-17)
PROC: 0DB98ZX Excision of Duodenum, Via Natural or Artificial Opening Endoscopic, Diagnostic (ICD-10-PCS; principal; 2021-11-17 10:00)
DX: E87.1 Hypo-osmolality and hyponatremia (principal); N39.0 Urinary tract infection, site not specified; N17.9 Acute kidney failure, unspecified; Z68.1 Body mass index [BMI] 19.9 or less, adult; E03.9 Hypothyroidism, unspecified; E11.22 Type 2 diabetes mellitus with diabetic chronic kidney disease; I12.9 Hypertensive chronic kidney disease with stage 1 through stage 4 chronic kidney disease, or unspecified chronic kidney disease; F20.9 Schizophrenia, unspecified; N18.9 Chronic kidney disease, unspecified; D64.9 Anemia, unspecified; K21.9 Gastro-esophageal reflux disease without esophagitis; E87.5 Hyperkalemia; G40.909 Epilepsy, unspecified, not intractable, without status epilepticus; E78.5 Hyperlipidemia, unspecified; D72.829 Elevated white blood cell count, unspecified; K64.8 Other hemorrhoids; K29.40 Chronic atrophic gastritis without bleeding; K59.00 Constipation, unspecified
CPT/HCPCS: 36415; 36430; 70450-TC; 71045-TC-FY; 71101-TC-LT-FY; 73030-TC-LT-FY; 73060-TC-LT-FY; 76775-TC; 80048; 80053; 80061; 81003; 82272; 82436; 82533; 82570; 82728; 83036; 83540; 83550; 83735; 83930; 83935; 84100; 84300; 84443; 85025; 85027; 85610; 85730; 86850; 86900; 86901; 86922; 87040; 87086; 87186; 87899; 88305-TC; 90686; 93005; 93010; 99285-25; C9803-CS; G0008; J1644; P9058; U0003; U0005

== ENCOUNTER 2021-12-17 19:40 | Inpatient (IN) | payer OTHER ==
[2021-12-17] MEDS ORDERED: SODIUM CHLORIDE 1,633 ML IV ONE (20:08)
[2021-12-17 20:12] VITALS: BMI 23.4
[2021-12-17] MEDS ORDERED: PIPERACILLIN/TAZOB 3.375 GM 3.375 GM in DEXTROSE 5%-WATER - 50 ML IVPB ONE (21:02)
[2021-12-17] MEDS ORDERED: PIPERACILLIN/TAZOB 3.375 GM 3.375 GM/50 ML BAG IVPB ONE (21:03)
[2021-12-17 21:24] LABS: EPI CELLS >36 /uL (0-25.1); HYALINE CASTS 1 /uL (0-3.1); PH,URINE 5.5 (5.0-8.0); URINE APPEARANCE CLEAR; URINE BILIRUBIN NEGATIVE (NEGATIVE); URINE COLOR YELLOW; URINE GLUCOSE (UA) TRACE (NEGATIVE); URINE KETONE NEGATIVE (NEGATIVE); URINE LEUK ESTERASE 2+ (NEGATIVE); URINE NITRITE POSITIVE (NEGATIVE); URINE PROTEIN 2+ (NEGATIVE); URINE RBC 50 /uL (0-23.9); URINE UROBILINOGEN 0.2 mg/dL (0.2-1.0); URINE WBC 395 /uL (0-25.8)
[2021-12-17 21:27] LABS: INR 1.08 (0.83-1.09); PROTHROMBIN TIME (PATIENT) 12.4 SEC (9.7-13.0)
[2021-12-17 21:29] LABS: ACTIVATED PTT 30.2 SECONDS (25.2-36.5)
[2021-12-17 21:44] LABS: CHLORIDE 110 mmol/L (98-107); SODIUM 137 mmol/L (136-145)
[2021-12-17 21:46] LABS: CALCIUM 8.1 mg/dL (8.5-10.1)
[2021-12-17 21:47] LABS: ALBUMIN 2.7 g/dl (3.4-5.0); ANION GAP 12 MMOL/L (8-16); BLOOD UREA NITROGEN 79.5 mg/dL (7-18); CO2 15 mmol/L (21-32); GLUCOSE,RANDOM 188 mg/dL (74-106)
[2021-12-17 21:48] LABS: SGPT/ALT 154 U/L (13-61)
[2021-12-17 21:50] LABS: CREATININE 4.3 mg/dL (0.55-1.3); PHOSPHOROUS 3.4 mg/dL (2.5-4.9); SGOT/AST 57 U/L (15-37)
[2021-12-17 21:51] LABS: BILIRUBIN,TOTAL 0.2 mg/dL (0.2-1); TOT PROT 6.3 g/dl (6.4-8.2)
[2021-12-17] MEDS ORDERED: LACTATED RINGERS SOLUTION 1000 ML INFUS.BAG IV ONE (21:51)
[2021-12-17 21:52] LABS: ALK PHOS 217 U/L (45-117)
[2021-12-17] MEDS ORDERED: ASPIRIN 325 MG ENTERIC COATED TABLET (FP) PO ONE (21:56)
[2021-12-17 22:20] LABS: URINE BACTERIA 28.5 /uL (0-1359)
[2021-12-17 22:27] LABS: BASO % 0.2 % (0-2.0); EOS % 0.1 % (0-4.5); HEMATOCRIT 24.9 % (32.4-45.2); HEMOGLOBIN 8.3 GM/dL (10.7-15.3); LYMPH % 2.7 % (8-40); MCH 27.4 pg (25.7-33.7); MCHC 33.5 g/dl (32.0-36.0); MEAN CELL VOLUME 81.7 fl (80-96); MEAN PLT VOLUME 6.7 fl (7.5-11.1); MONO % 3.2 % (3.8-10.2); NEUT % 93.8 % (42.8-82.8); PLATELET COUNT 242 10^3/uL (134-434); RBC 3.05 M/mm3 (3.60-5.2); WHITE BLOOD COUNT 17.9 K/mm3 (4.0-10.0)
[2021-12-17 22:58] LABS: ANISOCYTOSIS 2+; MACROCYTOSIS 0; OVALOCYTE 1+
[2021-12-17] MEDS ORDERED: ASPIRIN 325 MG ENTERIC COATED TABLET (FP) ONE (23:00)
[2021-12-18 00:54] LABS: VENOUS O2 SATURATION 98.7 % (70-80); VENOUS PCO2 22.4 mmHg (38-52); VENOUS PH 7.355 (7.310-7.410)
[2021-12-18] MEDS ORDERED: PIPERACILLIN/TAZOB 2.25 GM 2.25 GM in DEXTROSE 5%-WATER - 50 ML IVPB SCH (03:30)
[2021-12-18] MEDS: PIPERACILLIN/TAZOB 2.25 GM 2.25 GM in DEXTROSE 5%-WATER - 50 ML IVPB SCH ×6 (05:00→21:14)
[2021-12-18] MEDS: OXcarbazepine 150 MG TABLET (UD) PO SCH ×3 (05:00→23:21)
[2021-12-18] MEDS ORDERED: PIPERACILLIN/TAZOB 2.25 GM 2.25 GM/50 ML BAG IVPB ONE ×3 (05:05→09:23)
[2021-12-18] MEDS: SODIUM CHLORIDE 1 GM TABLET PO SCH ×3 (06:00→23:21)
[2021-12-18] MEDS ORDERED: ACETAMINOPHEN 1000 MG/100 ML BAG IVPB ONE (06:31)
[2021-12-18] MEDS ORDERED: ACETAMINOPHEN INJECTION 100 ML IVPB ONE (06:44)
[2021-12-18] MEDS: INSULIN SLIDING SCALE (NOVOLOG) 1 VIAL SQ SCH ×4 (08:55→21:34)
[2021-12-18] MEDS ORDERED: LEVOTHYROXINE NA 75 MCG TABLET (FP) ONE (09:00)
[2021-12-18] MEDS: LEVOTHYROXINE NA 75 MCG TABLET (FP) PO SCH (09:08)
[2021-12-18] MEDS ORDERED: PIPERACILLIN/TAZOB 3.375 GM 3.375 GM/50 ML BAG IVPB ONE (09:21)
[2021-12-18] MEDS ORDERED: OLANZapine 10 MG TABLET ONE (09:41)
[2021-12-18] MEDS ORDERED: FAMOTIDINE 20 MG TABLET ONE (09:41)
[2021-12-18] MEDS ORDERED: HEPARIN NA (PORCINE) 5,000 UNITS/ML 1ML VIAL ONE (09:42)
[2021-12-18] MEDS ORDERED: OLANZapine 10 MG TABLET PO SCH (10:00)
[2021-12-18] MEDS ORDERED: FAMOTIDINE 20 MG TABLET PO SCH (10:00)
[2021-12-18] MEDS ORDERED: HEPARIN NA (PORCINE) 5,000 UNITS/ML 1ML VIAL SQ SCH (10:00)
[2021-12-18] MEDS ORDERED: HEPARIN NA (PORCINE) 5,000 UNITS/ML 1ML VIAL IVPUSH PRN (11:32)
[2021-12-18] MEDS: SODIUM BICARBONATE 650 MG TABLET PO SCH ×2 (13:18→21:14)
[2021-12-18] MEDS ORDERED: ASPIRIN COATED 81 MG TABLET.EC ONE (13:20)
[2021-12-18] MEDS: ASPIRIN COATED 81 MG TABLET.EC PO SCH (13:23)
[2021-12-18] MEDS ORDERED: HEPARIN INFUSION - 25,000 UNITS/500 ML INFUS.BAG IVPB ONE (13:43)
[2021-12-18] MEDS: HEPARIN - 25,000 UNIT in SODIUM CHLORIDE 495 ML IV SCH (13:52)
[2021-12-18] MEDS ORDERED: DEXTROSE 5%-WATER - 50 ML IVPB ONE ×2 (15:30→20:57)
[2021-12-18] MEDS ORDERED: PIPERACILLIN/TAZOBACTAM 2.25 GM VIAL IVPB ONE ×2 (15:30→20:57)
[2021-12-18 17:16] LABS: BASO % 0.4 % (0-2.0); EOS % 3.2 % (0-4.5); HEMATOCRIT 21.4 % (32.4-45.2); HEMOGLOBIN 7.2 GM/dL (10.7-15.3); LYMPH % 9.8 % (8-40); MCH 27.3 pg (25.7-33.7); MCHC 33.4 g/dl (32.0-36.0); MEAN CELL VOLUME 81.7 fl (80-96); MEAN PLT VOLUME 6.8 fl (7.5-11.1); MONO % 5.2 % (3.8-10.2); NEUT % 81.4 % (42.8-82.8); PLATELET COUNT 205 10^3/uL (134-434); RBC 2.62 M/mm3 (3.60-5.2); RDW 15.8 % (11.6-15.6); WHITE BLOOD COUNT 9.6 K/mm3 (4.0-10.0)
[2021-12-18 17:38] LABS: ALBUMIN 2.4 g/dl (3.4-5.0); BLOOD UREA NITROGEN 64.4 mg/dL (7-18); CALCIUM 7.9 mg/dL (8.5-10.1)
[2021-12-18 17:41] LABS: CREATININE 3.5 mg/dL (0.55-1.3)
[2021-12-18 17:42] LABS: BILIRUBIN,TOTAL 0.3 mg/dL (0.2-1); TOT PROT 5.7 g/dl (6.4-8.2)
[2021-12-18] MEDS: PANTOPRAZOLE SODIUM 40 MG VIAL IVPUSH SCH (21:14)
[2021-12-19] MEDS: HEPARIN NA (PORCINE) 5,000 UNITS/ML 1ML VIAL IVPUSH PRN ×2 (00:36→18:30)
[2021-12-19] MEDS ORDERED: ACETAMINOPHEN 1000 MG/100 ML BAG IVPB ONE (01:34)
[2021-12-19] MEDS ORDERED: PIPERACILLIN/TAZOBACTAM 2.25 GM VIAL IVPB ONE ×4 (02:21→21:32)
[2021-12-19] MEDS ORDERED: DEXTROSE 5%-WATER - 50 ML IVPB ONE ×4 (02:21→21:32)
[2021-12-19] MEDS: PIPERACILLIN/TAZOB 2.25 GM 2.25 GM in DEXTROSE 5%-WATER - 50 ML IVPB SCH ×4 (02:49→21:45)
[2021-12-19] MEDS: INSULIN SLIDING SCALE (NOVOLOG) 1 VIAL SQ SCH ×4 (06:56→22:04)
[2021-12-19] MEDS: LEVOTHYROXINE NA 75 MCG TABLET (FP) PO SCH (06:56)
[2021-12-19] MEDS: SODIUM CHLORIDE 1 GM TABLET PO SCH ×2 (06:56→15:23)
[2021-12-19 08:39] LABS: ALBUMIN 2.2 g/dl (3.4-5.0); BILIRUBIN,TOTAL 0.3 mg/dL (0.2-1); BLOOD UREA NITROGEN 53.5 mg/dL (7-18); CALCIUM 8.1 mg/dL (8.5-10.1); CREATININE 3.5 mg/dL (0.55-1.3); TOT PROT 5.7 g/dl (6.4-8.2)
[2021-12-19 08:45] LABS: HEMATOCRIT 21.6 % (32.4-45.2); HEMOGLOBIN 7.3 GM/dL (10.7-15.3); LYMPH % 14.8 % (8-40); MCH 27.5 pg (25.7-33.7); MCHC 33.6 g/dl (32.0-36.0); NEUT % 70.1 % (42.8-82.8); PLATELET COUNT 213 10^3/uL (134-434); RBC 2.64 M/mm3 (3.60-5.2); RDW 15.9 % (11.6-15.6); WHITE BLOOD COUNT 7.4 K/mm3 (4.0-10.0)
[2021-12-19 08:46] LABS: EOS % 6.1 % (0-4.5)
[2021-12-19] MEDS: PANTOPRAZOLE SODIUM 40 MG VIAL IVPUSH SCH ×2 (10:41→21:56)
[2021-12-19] MEDS: ASPIRIN COATED 81 MG TABLET.EC PO SCH (10:41)
[2021-12-19] MEDS: OLANZapine 5 MG TABLET PO SCH (10:41)
[2021-12-19] MEDS: SODIUM BICARBONATE 650 MG TABLET PO SCH ×3 (10:41→21:58)
[2021-12-19] MEDS: OXcarbazepine 150 MG TABLET (UD) PO SCH ×2 (10:42→21:56)
[2021-12-19] MEDS: HEPARIN - 25,000 UNIT in SODIUM CHLORIDE 495 ML IV SCH (11:30)
[2021-12-19] MEDS ORDERED: IRON SUCROSE INJECTION 200 MG in SODIUM CHLORIDE 90 ML IVPB ONE (14:00)
[2021-12-19] MEDS ORDERED: VANCOMYCIN 1 GM in D5W (PRE-DOCKED) 1,000 MG/250 ML IVPB SCH (16:00)
[2021-12-20] MEDS ORDERED: ACETAMINOPHEN 325 MG TABLET (FP) PO ONE (00:39)
[2021-12-20] MEDS ORDERED: PIPERACILLIN/TAZOBACTAM 2.25 GM VIAL IVPB ONE ×4 (01:18→21:41)
[2021-12-20] MEDS ORDERED: DEXTROSE 5%-WATER - 50 ML IVPB ONE ×4 (01:18→21:41)
[2021-12-20] MEDS: PIPERACILLIN/TAZOB 2.25 GM 2.25 GM in DEXTROSE 5%-WATER - 50 ML IVPB SCH ×4 (02:33→22:02)
[2021-12-20] MEDS: SODIUM BICARBONATE 650 MG TABLET PO SCH ×3 (06:16→22:03)
[2021-12-20] MEDS: LEVOTHYROXINE NA 75 MCG TABLET (FP) PO SCH (06:16)
[2021-12-20] MEDS: INSULIN SLIDING SCALE (NOVOLOG) 1 VIAL SQ SCH ×4 (06:16→22:02)
[2021-12-20 09:15] LABS: HEMATOCRIT 22.5 % (32.4-45.2); HEMOGLOBIN 7.7 GM/dL (10.7-15.3); MCH 27.8 pg (25.7-33.7); MEAN CELL VOLUME 81.6 fl (80-96); PLATELET COUNT 259 10^3/uL (134-434); RBC 2.76 M/mm3 (3.60-5.2); RDW 16.2 % (11.6-15.6); WHITE BLOOD COUNT 8.7 K/mm3 (4.0-10.0)
[2021-12-20] MEDS: OLANZapine 5 MG TABLET PO SCH (09:33)
[2021-12-20] MEDS: PANTOPRAZOLE SODIUM 40 MG VIAL IVPUSH SCH ×2 (09:33→22:03)
[2021-12-20] MEDS: SODIUM CHLORIDE 1 GM TABLET PO SCH (09:34)
[2021-12-20] MEDS: CLOPIDOGREL BISULFATE 75 MG TABLET (FP) PO SCH (09:34)
[2021-12-20] MEDS: OXcarbazepine 150 MG TABLET (UD) PO SCH (09:35)
[2021-12-20 09:46] LABS: CREATININE 3.1 mg/dL (0.55-1.3)
[2021-12-20 09:49] LABS: ALBUMIN 2.5 g/dl (3.4-5.0); BLOOD UREA NITROGEN 40.2 mg/dL (7-18); CALCIUM 8.4 mg/dL (8.5-10.1)
[2021-12-20 09:52] LABS: TOT PROT 6.4 g/dl (6.4-8.2)
[2021-12-20 09:53] LABS: BILIRUBIN,TOTAL 0.5 mg/dL (0.2-1)
[2021-12-20] MEDS ORDERED: IRON SUCROSE INJECTION 200 MG in SODIUM CHLORIDE 90 ML IVPB ONE (14:00)
[2021-12-21] MEDS ORDERED: ACETAMINOPHEN 325 MG TABLET (FP) PO ONE (00:50)
[2021-12-21] MEDS ORDERED: PIPERACILLIN/TAZOBACTAM 2.25 GM VIAL IVPB ONE ×4 (01:13→19:48)
[2021-12-21] MEDS ORDERED: DEXTROSE 5%-WATER - 50 ML IVPB ONE ×4 (01:13→19:48)
[2021-12-21] MEDS: OXcarbazepine 150 MG TABLET (UD) PO SCH ×3 (01:20→21:07)
[2021-12-21] MEDS: PIPERACILLIN/TAZOB 2.25 GM 2.25 GM in DEXTROSE 5%-WATER - 50 ML IVPB SCH ×4 (02:06→20:02)
[2021-12-21] MEDS: SODIUM BICARBONATE 650 MG TABLET PO SCH ×3 (06:15→21:07)
[2021-12-21] MEDS: LEVOTHYROXINE NA 75 MCG TABLET (FP) PO SCH (06:15)
[2021-12-21] MEDS: INSULIN SLIDING SCALE (NOVOLOG) 1 VIAL SQ SCH ×4 (06:15→21:26)
[2021-12-21 08:52] LABS: HEMATOCRIT 23.3 % (32.4-45.2); HEMOGLOBIN 7.9 GM/dL (10.7-15.3); MCH 27.7 pg (25.7-33.7); MEAN CELL VOLUME 81.5 fl (80-96); MEAN PLT VOLUME 6.9 fl (7.5-11.1); PLATELET COUNT 288 10^3/uL (134-434); RBC 2.85 M/mm3 (3.60-5.2); RDW 15.6 % (11.6-15.6)
[2021-12-21] MEDS: OLANZapine 5 MG TABLET PO SCH (09:21)
[2021-12-21] MEDS: CLOPIDOGREL BISULFATE 75 MG TABLET (FP) PO SCH (09:21)
[2021-12-21] MEDS: SODIUM CHLORIDE 1 GM TABLET PO SCH (09:22)
[2021-12-21] MEDS: CYANOCOBALAMIN (VITAMIN B-12) 100 MCG TABLET PO SCH (09:22)
[2021-12-21] MEDS: PANTOPRAZOLE SODIUM 40 MG VIAL IVPUSH SCH ×2 (09:23→21:07)
[2021-12-21] MEDS: FOLIC ACID 1 MG TABLET (FP) PO SCH (09:26)
[2021-12-21] MEDS ORDERED: IRON SUCROSE INJECTION 200 MG in SODIUM CHLORIDE 90 ML IVPB ONE (14:00)
[2021-12-21] MEDS ORDERED: traMADol HCL 50 MG TABLET PO ONE (19:40)
[2021-12-22] MEDS ORDERED: PIPERACILLIN/TAZOBACTAM 2.25 GM VIAL IVPB ONE ×4 (02:12→19:55)
[2021-12-22] MEDS ORDERED: DEXTROSE 5%-WATER - 50 ML IVPB ONE ×4 (02:12→19:55)
[2021-12-22] MEDS: PIPERACILLIN/TAZOB 2.25 GM 2.25 GM in DEXTROSE 5%-WATER - 50 ML IVPB SCH ×4 (02:22→20:04)
[2021-12-22] MEDS: INSULIN SLIDING SCALE (NOVOLOG) 1 VIAL SQ SCH ×4 (06:04→22:40)
[2021-12-22] MEDS: LEVOTHYROXINE NA 75 MCG TABLET (FP) PO SCH (06:04)
[2021-12-22] MEDS: SODIUM BICARBONATE 650 MG TABLET PO SCH ×3 (06:04→22:33)
[2021-12-22] MEDS: OLANZapine 5 MG TABLET PO SCH ×2 (08:37→12:20)
[2021-12-22] MEDS: OXcarbazepine 150 MG TABLET (UD) PO SCH ×3 (08:39→22:33)
[2021-12-22 09:31] LABS: HEMATOCRIT 25.7 % (32.4-45.2); HEMOGLOBIN 8.7 GM/dL (10.7-15.3); MCH 27.6 pg (25.7-33.7); MCHC 33.8 g/dl (32.0-36.0); MEAN CELL VOLUME 81.8 fl (80-96); MEAN PLT VOLUME 6.8 fl (7.5-11.1); PLATELET COUNT 400 10^3/uL (134-434); RBC 3.15 M/mm3 (3.60-5.2); RDW 15.6 % (11.6-15.6); WHITE BLOOD COUNT 9.9 K/mm3 (4.0-10.0)
[2021-12-22 09:57] LABS: ALBUMIN 2.6 g/dl (3.4-5.0); CALCIUM 8.6 mg/dL (8.5-10.1)
[2021-12-22 09:58] LABS: BLOOD UREA NITROGEN 28.4 mg/dL (7-18)
[2021-12-22 10:00] LABS: CREATININE 3.1 mg/dL (0.55-1.3)
[2021-12-22 10:02] LABS: BILIRUBIN,TOTAL 0.3 mg/dL (0.2-1); TOT PROT 6.5 g/dl (6.4-8.2)
[2021-12-22] MEDS ORDERED: REGADENOSON 0.4 MG/5 ML PRE-FILLED SYRINGE IVPUSH ONE ×2 (10:08→10:45)
[2021-12-22] MEDS: CLOPIDOGREL BISULFATE 75 MG TABLET (FP) PO SCH (12:17)
[2021-12-22] MEDS: FOLIC ACID 1 MG TABLET (FP) PO SCH (12:18)
[2021-12-22] MEDS: PANTOPRAZOLE SODIUM 40 MG VIAL IVPUSH SCH ×2 (12:18→22:33)
[2021-12-22] MEDS: CYANOCOBALAMIN (VITAMIN B-12) 100 MCG TABLET PO SCH (12:19)
[2021-12-22] MEDS: SODIUM CHLORIDE 1 GM TABLET PO SCH (12:19)
[2021-12-23] MEDS ORDERED: PIPERACILLIN/TAZOBACTAM 2.25 GM VIAL IVPB ONE ×3 (01:49→13:02)
[2021-12-23] MEDS ORDERED: DEXTROSE 5%-WATER - 50 ML IVPB ONE ×3 (01:50→13:02)
[2021-12-23] MEDS: PIPERACILLIN/TAZOB 2.25 GM 2.25 GM in DEXTROSE 5%-WATER - 50 ML IVPB SCH ×3 (02:12→14:54)
[2021-12-23] MEDS: INSULIN SLIDING SCALE (NOVOLOG) 1 VIAL SQ SCH ×4 (06:01→21:53)
[2021-12-23] MEDS: LEVOTHYROXINE NA 75 MCG TABLET (FP) PO SCH (06:01)
[2021-12-23] MEDS: SODIUM BICARBONATE 650 MG TABLET PO SCH ×3 (06:01→21:44)
[2021-12-23 06:43] LABS: HEMATOCRIT 23.4 % (32.4-45.2); HEMOGLOBIN 7.9 GM/dL (10.7-15.3); MCH 27.6 pg (25.7-33.7); MCHC 33.9 g/dl (32.0-36.0); MEAN CELL VOLUME 81.6 fl (80-96); MEAN PLT VOLUME 6.7 fl (7.5-11.1); PLATELET COUNT 388 10^3/uL (134-434); RBC 2.86 M/mm3 (3.60-5.2); RDW 15.2 % (11.6-15.6); WHITE BLOOD COUNT 9.6 K/mm3 (4.0-10.0)
[2021-12-23 07:06] LABS: BLOOD UREA NITROGEN 27.4 mg/dL (7-18)
[2021-12-23 07:07] LABS: ALBUMIN 2.6 g/dl (3.4-5.0); CALCIUM 8.5 mg/dL (8.5-10.1)
[2021-12-23 07:08] LABS: BILIRUBIN,TOTAL 0.2 mg/dL (0.2-1); TOT PROT 6.2 g/dl (6.4-8.2)
[2021-12-23] MEDS: FOLIC ACID 1 MG TABLET (FP) PO SCH (09:30)
[2021-12-23] MEDS: PANTOPRAZOLE 40 MG TABLET PO SCH ×2 (09:30→21:44)
[2021-12-23] MEDS: OLANZapine 5 MG TABLET PO SCH (09:30)
[2021-12-23] MEDS: CLOPIDOGREL BISULFATE 75 MG TABLET (FP) PO SCH (09:30)
[2021-12-23] MEDS: SODIUM CHLORIDE 1 GM TABLET PO SCH (09:31)
[2021-12-23] MEDS: OXcarbazepine 150 MG TABLET (UD) PO SCH ×2 (09:31→21:44)
[2021-12-23] MEDS: CYANOCOBALAMIN (VITAMIN B-12) 100 MCG TABLET PO SCH (09:31)
[2021-12-23] MEDS: FERROUS SO4 325 MG TABLET (FP) PO SCH (14:52)
[2021-12-23] MEDS ORDERED: traMADol HCL 50 MG TABLET PO ONE (21:23)
[2021-12-24] MEDS: INSULIN SLIDING SCALE (NOVOLOG) 1 VIAL SQ SCH ×4 (06:13→22:15)
[2021-12-24] MEDS: SODIUM BICARBONATE 650 MG TABLET PO SCH ×3 (06:13→22:15)
[2021-12-24] MEDS: LEVOTHYROXINE NA 75 MCG TABLET (FP) PO SCH (06:15)
[2021-12-24] MEDS: SODIUM CHLORIDE 1 GM TABLET PO SCH (09:37)
[2021-12-24] MEDS: FERROUS SO4 325 MG TABLET (FP) PO SCH (09:37)
[2021-12-24] MEDS: CLOPIDOGREL BISULFATE 75 MG TABLET (FP) PO SCH (09:37)
[2021-12-24] MEDS: FOLIC ACID 1 MG TABLET (FP) PO SCH (09:37)
[2021-12-24] MEDS: CYANOCOBALAMIN (VITAMIN B-12) 100 MCG TABLET PO SCH (09:37)
[2021-12-24] MEDS: OLANZapine 5 MG TABLET PO SCH (09:37)
[2021-12-24] MEDS: OXcarbazepine 150 MG TABLET (UD) PO SCH ×2 (09:37→22:15)
[2021-12-24] MEDS: PANTOPRAZOLE 40 MG TABLET PO SCH ×2 (09:37→22:15)
[2021-12-24 10:17] LABS: HEMATOCRIT 27.5 % (32.4-45.2); HEMOGLOBIN 9.2 GM/dL (10.7-15.3); MCH 27.4 pg (25.7-33.7); MCHC 33.5 g/dl (32.0-36.0); MEAN PLT VOLUME 6.6 fl (7.5-11.1); PLATELET COUNT 576 10^3/uL (134-434); RBC 3.35 M/mm3 (3.60-5.2); RDW 15.6 % (11.6-15.6); WHITE BLOOD COUNT 10.7 K/mm3 (4.0-10.0)
[2021-12-24 10:37] LABS: BLOOD UREA NITROGEN 22.4 mg/dL (7-18)
[2021-12-24 10:40] LABS: CREATININE 2.8 mg/dL (0.55-1.3)
[2021-12-24 18:06] LABS: BILIRUBIN,DIRECT 0.1 mg/dL (0.0-0.2)
[2021-12-24 18:07] LABS: BILIRUBIN,TOTAL 0.2 mg/dL (0.2-1); TOT PROT 7.1 g/dl (6.4-8.2)
[2021-12-24 18:10] LABS: ALBUMIN 3.1 g/dl (3.4-5.0)
[2021-12-25] MEDS: SODIUM BICARBONATE 650 MG TABLET PO SCH ×2 (06:04→14:05)
[2021-12-25] MEDS: LEVOTHYROXINE NA 75 MCG TABLET (FP) PO SCH (06:04)
[2021-12-25] MEDS: INSULIN SLIDING SCALE (NOVOLOG) 1 VIAL SQ SCH ×3 (06:19→16:34)
[2021-12-25] MEDS: FERROUS SO4 325 MG TABLET (FP) PO SCH (10:14)
[2021-12-25] MEDS: PANTOPRAZOLE 40 MG TABLET PO SCH (10:14)
[2021-12-25] MEDS: OLANZapine 5 MG TABLET PO SCH (10:14)
[2021-12-25] MEDS: CLOPIDOGREL BISULFATE 75 MG TABLET (FP) PO SCH (10:14)
[2021-12-25] MEDS: FOLIC ACID 1 MG TABLET (FP) PO SCH (10:14)
[2021-12-25] MEDS: CYANOCOBALAMIN (VITAMIN B-12) 100 MCG TABLET PO SCH (10:15)
[2021-12-25] MEDS: OXcarbazepine 150 MG TABLET (UD) PO SCH (10:15)
[2021-12-25] MEDS: SODIUM CHLORIDE 1 GM TABLET PO SCH (10:15)
[2021-12-25 13:08] LABS: SARS-CoV-2 NAA Not Detected (Not Detected)
[2021-12-25 13:10] VITALS: BP 147/80; PULSE 92; TEMP 98.2
== END 2021-12-25 18:28 | DRG 871 ==
LOC: JER 19:40 → JERBED 22:35 → J4S 12-18 14:32
PROVIDERS: ADMIT Hospitalist; ATTEND Family Medicine
DX: A41.89 Other specified sepsis (principal); I21.4 Non-ST elevation (NSTEMI) myocardial infarction; N39.0 Urinary tract infection, site not specified; N17.9 Acute kidney failure, unspecified; A04.8 Other specified bacterial intestinal infections; E87.1 Hypo-osmolality and hyponatremia; E11.9 Type 2 diabetes mellitus without complications; E03.9 Hypothyroidism, unspecified; F20.9 Schizophrenia, unspecified; D63.1 Anemia in chronic kidney disease; R77.8 Other specified abnormalities of plasma proteins; R13.10 Dysphagia, unspecified; I69.991 Dysphagia following unspecified cerebrovascular disease; K21.9 Gastro-esophageal reflux disease without esophagitis; G40.909 Epilepsy, unspecified, not intractable, without status epilepticus; F32.A Depression, unspecified; R79.89 Other specified abnormal findings of blood chemistry; E87.5 Hyperkalemia; I12.9 Hypertensive chronic kidney disease with stage 1 through stage 4 chronic kidney disease, or unspecified chronic kidney disease; E11.22 Type 2 diabetes mellitus with diabetic chronic kidney disease; N18.9 Chronic kidney disease, unspecified; Z87.11 Personal history of peptic ulcer disease; K64.9 Unspecified hemorrhoids
CPT/HCPCS: 36415; 70450-TC; 71045-TC-FY; 76700-TC; 78452-TC; 80048; 80053; 80076; 81003; 82550; 82553; 82607; 82728; 82747; 82803; 82962; 82977; 83540; 83550; 83605; 83735; 84100; 84439; 84443; 84484; 85014; 85025; 85027; 85045; 85610; 85730; 86140; 86704; 86709; 86803; 86850; 86900; 86901; 86922; 87040; 87086; 87340; 87517; 87804; 87807; 93005; 93010; 93017; 93306-TC; 97116-GP; 97161-GP; 99285-25; A9502; C9803-CS; G0480; J1644; J1756; J2785; U0003; U0005